=== PATIENT | female | born 1965 | race Two or more races ===

== ENCOUNTER 2019-08-08 14:54 | Emergency (ER) | payer SELFPAY ==
[~2019-08-08] VITALS: Ht 167.6 cm; Wt 68.0 kg
--- NOTE | 2019-08-08 15:51 | PHYS DOC ---
Past Medical History Past Medical History: Depression, Diabetes-Type I, Diabetes-Type II, Hypo thyroid Additional Past Surgical Histo: RIGHT HAND/WRIST Alcohol Use: None Drug Use: None Adult General Chief Complaint Chief Complaint: LOWER EXT PAIN HPI HPI Patient is a 54 year old female with history of diabetes type II, depression, hypothyroidism, who presents to the ED today complaining of numbness to the right toes that began yesterday after she worked out. Patient denies any trauma. She states intermittently she feels like her whole foot to the knee gets numbness. Patient states symptoms come and go. Denies anything specifically exacerbating or relieving the symptoms. She states she's had similar symptoms before but not lasting as long as today. See PERC score Patient is Romanian-speaking and interpretation is provided by family Review of Systems Review of Systems Constitutional: Denies fever or chills [] Eyes: Denies change in visual acuity, redness, or eye pain [] HENT: Denies nasal congestion or sore throat [] Respiratory: Denies cough or shortness of breath [] Cardiovascular: No additional information not addressed in HPI [] GI: Denies abdominal pain, nausea, vomiting, bloody stools or diarrhea [] : Denies dysuria or hematuria [] Musculoskeletal: Reports right foot numbness. Denies back pain or joint pain [] Integument: Denies rash or skin lesions [] Neurologic: Denies headache, focal weakness or sensory changes [] All other systems were reviewed and found to be within normal limits, except as documented in this note. Physical Exam Physical Exam Constitutional: Well developed, well nourished, no acute distress, non-toxic appearance. [] HENT: Normocephalic, atraumatic, bilateral external ears normal, oropharynx moist, no oral exudates, nose normal. [] Eyes: PERRLA, EOMI, conjunctiva normal, no discharge. [] Neck: Normal range of motion, no tenderness, supple, no stridor. [] Cardiovascular:Heart rate regular rhythm, no murmur [] Lungs & Thorax: Bilateral breath sounds clear to auscultation [] Abdomen: Bowel sounds normal, soft, no tenderness, no masses, no pulsatile masses. [] Skin: Warm, dry, no erythema, no rash. [] Back: No tenderness, no CVA tenderness. [] Extremities: No tenderness, no cyanosis, no clubbing, ROM intact, no edema. Negative Homans sign to the right lower extremity Neurologic: Alert and oriented X 3, normal motor function, normal sensory function, no focal deficits noted. [] Psychologic: Affect normal, judgement normal, mood normal. [] Current Patient Data Vital Signs Vital Signs Date Time Temp Pulse Resp B/P (MAP) Pulse Ox O2 Delivery O2 Flow Rate FiO2 08/08/19 15:10 98.1 75 19 132/71 (91) 96 Room Air 98.1 EKG EKG [] Radiology/Procedures Radiology/Procedures []PROCEDURE: VENOUS LOWER EXTREMITY RIGHT Right lower extremity venous doppler ultrasound History: Right lower extremity numbness Comparison: None Findings: Multiple grayscale, color, and duplex spectral analysis sonographic images were acquired of the right lower extremity veins to evaluate for the presence of DVT. There is normal phasicity. Normal compression, color-flow, and augmentation is demonstrated from the right common femoral to the popliteal veins. There is normal color flow of the proximal greater saphenous and profunda femoris veins. There is normal color flow of segments of the calf veins. Impression: 1. There is no evidence of deep venous thrombosis from the right common femoral to the popliteal veins. Electronically signed by: Alysia Arevalo MD (08/08/2019 4:19 PM) [id number] DICTATED and SIGNED BY: ALYSIA AREVALO MD DATE: 08/08/19 1619 PROCEDURE: ARTERIAL STUDY LOWER EXT RIGHT Bilateral lower extremity arterial ultrasound History: Right lower extremity paresthesias Findings: Multiple grayscale, color, and duplex spectral analysis sonographic images were acquired of the lower extremity arteries bilaterally. There are no previous similar exams. Velocities in cm/sec: RIGHT Common femoral artery 154 Profunda femoris artery 77 Proximal SFA 117 Mid SFA 114 Distal SFA 112 Popliteal artery 82 Anterior tibial artery 82 Dorsalis pedis artery 67 Posterior tibial artery 78 Peroneal artery 37 Triphasic flow is identified except in the deep femoral artery and peroneal artery distributions. Mild atheromatous involvement of the dorsalis pedis artery is present. Impression: No hemodynamically significant stenosis identified. Electronically signed by: Russel Mojica MD (08/08/2019 4:32 PM) [facility] DICTATED and SIGNED BY: RUSSEL MOJICA MD DATE: 08/08/19 7764 Course & Med Decision Making Course & Med Decision Making Pertinent Labs and Imaging studies reviewed. (See chart for details) This is a 54-year-old female patient presenting to the ED today complaining of numbness to the right foot and toes that began yesterday. PERC score is 1. Venous Doppler and arterial Dopplers of right lower extremity negative. I believe her diabetes could be causing her neuropathy to her feet. Patient was discharged with gabapentin. F/u with PCP next week. Dragon Disclaimer Dragon Disclaimer This electronic medical record was generated, in whole or in part, using a voice recognition dictation system. PERC Rule for PE PERC Rule for PE Response (Comments) Value Age > 50: Yes 1 HR > 100: No 0 Sa02 on room air <95%: No 0 Unilateral leg swelling: No 0 Hemoptysis: No 0 Recent surgery or trauma: No 0 Prior PE or DVT: No 0 Hormone use: No 0 Total 1 Departure Departure Impression: Primary Impression: Diabetes mellitus with neuropathy Disposition: HOME, SELF-CARE Condition: STABLE (you have any) Referrals: NO PCP (PCP) follow up with your doctor in one week Patient Instructions: Diabetic Neuropathy Additional Instructions: You were evaluated in the emergency room for numbness to your foot, we did an ultrasound of the right leg which was negative for blood clots or circulation issues. You could have diabetes neuropathy which could be the cause of your pain and numbness to your feet and arms. We sent you home with prescription for gabapentin. Follow-up with your doctor in 1-2 weeks. Scripts Gabapentin (GABAPENTIN ) 300 Mg Capsule 300 MG PO TID for NEUROGENIC PAIN, #30 CAP Prov: DENZEL MCKEON APRN 08/08/19 Problem Qualifiers Primary Impression: Diabetes mellitus with neuropathy Diabetes mellitus type: type 2 Diabetes mellitus senior living insulin use: unspecified senior living insulin use status Qualified Codes: E11.40 - Type 2 diabetes mellitus with diabetic neuropathy, unspecified DENZEL MCKEON APRN Aug 08, 2019 15:51
--- NOTE | 2019-08-08 16:22 | RAD ---
Right lower extremity venous doppler ultrasound History: Right lower extremity numbness Comparison: None Findings: Multiple grayscale, color, and duplex spectral analysis sonographic images were acquired of the right lower extremity veins to evaluate for the presence of DVT. There is normal phasicity. Normal compression, color-flow, and augmentation is demonstrated from the right common femoral to the popliteal veins. There is normal color flow of the proximal greater saphenous and profunda femoris veins. There is normal color flow of segments of the calf veins. Impression: 1. There is no evidence of deep venous thrombosis from the right common femoral to the popliteal veins. Electronically signed by: Jose Latham MD (08/08/2019 4:19 PM) [id number]
--- NOTE | 2019-08-08 16:35 | RAD ---
Bilateral lower extremity arterial ultrasound History: Right lower extremity paresthesias Findings: Multiple grayscale, color, and duplex spectral analysis sonographic images were acquired of the lower extremity arteries bilaterally. There are no previous similar exams. Velocities in cm/sec: RIGHT Common femoral artery 154 Profunda femoris artery 77 Proximal SFA 117 Mid SFA 114 Distal SFA 112 Popliteal artery 82 Anterior tibial artery 82 Dorsalis pedis artery 67 Posterior tibial artery 78 Peroneal artery 37 Triphasic flow is identified except in the deep femoral artery and peroneal artery distributions. Mild atheromatous involvement of the dorsalis pedis artery is present. Impression: No hemodynamically significant stenosis identified. Electronically signed by: Russel Ibrahim MD (08/08/2019 4:32 PM) [facility]
[2019-08-08 16:40] VITALS: BP 180/74
[2019-08-08] MEDS ORDERED: GABA300C18 PO (16:55)
== END 2019-08-08 16:55 | disposition home or self-care (01) ==
LOC: ER 14:54
DX: E11.40 Type 2 diabetes mellitus with diabetic neuropathy, unspecified (principal); E03.9 Hypothyroidism, unspecified; F32.9 Major depressive disorder, single episode, unspecified
CPT/HCPCS: 93923; 93971; 99284-25

== ENCOUNTER → 2020-05-28 | Outpatient (CLI) | payer OTHER ==
[~2020-05-28] MED LIST: GABA300C18 PO
--- NOTE | 2020-05-28 13:21 | RAD ---
WRIST 2V LEFT DATE: 05/28/2020 9:14 AM INDICATION: Reason: RIGHT WRIST PAIN. / Spl. Instructions: / History: COMPARISON: None. FINDINGS: Bones: There is no evidence of acute fracture or dislocation. Joints: Mild degenerative changes of the first CMC joint. Miscellaneous: None. IMPRESSION: No acute osseous abnormality. Mild first CMC joint degenerative changes. Electronically signed by: Jose Higgins MD (05/28/2020 1:18 PM) [id number]
--- NOTE | 2020-05-28 13:22 | RAD ---
KNEE RIGHT 2V DATE: 05/28/2020 9:14 AM INDICATION: Reason: RIGHT KNEE AND WRIST PAIN. / Spl. Instructions: / History: COMPARISON: None. FINDINGS: Bones: There is no evidence of acute fracture or dislocation. Joints: Moderate medial compartment joint space narrowing, mild lateral patellofemoral compartment joint space narrowing. Trace joint effusion. Miscellaneous: None. IMPRESSION: No acute osseous abnormality. Tricompartmental degenerative changes, worst and moderate in the medial compartment. Electronically signed by: Jose Higgins MD (05/28/2020 1:19 PM) [id number]
== END | disposition home or self-care (01) ==
LOC: RAD 09:48
PROVIDERS: ATTEND Nurse Practitioner
DX: M18.11 Unilateral primary osteoarthritis of first carpometacarpal joint, right hand (principal); M25.861 Other specified joint disorders, right knee; M25.561 Pain in right knee
CPT/HCPCS: 73100; 73560

== ENCOUNTER → 2020-12-29 | Outpatient (CLI) | payer OTHER ==
--- NOTE | 2020-12-29 17:13 | RAD ---
XR KNEE 3 VIEWS_RT DATE: 12/29/2020 1:13 PM INDICATION: Reason: CHRONIC RIGHT KNEE PAIN SINCE 2014. / Spl. Instructions: / History: COMPARISON: 05/28/2020 FINDINGS: Bones: There is no evidence of acute fracture or dislocation. Joints: Moderate medial compartment degenerative changes, mild lateral and patellofemoral compartmen t degenerative changes. There is no joint effusion. Miscellaneous: None. IMPRESSION: Tricompartmental degenerative changes have not progressed from the prior exam, most pronounced in the medial compartment with moderate joint space narrowing. Electronically signed by: Jose Higgins MD (12/29/2020 5:10 PM) [id number]
== END ==
LOC: RAD 12:53
PROVIDERS: ATTEND Family Medicine
DX: M17.11 Unilateral primary osteoarthritis, right knee (principal)
CPT/HCPCS: 73562

== ENCOUNTER 2021-08-20 13:09 | Emergency (ER) | payer OTHER ==
[~2021-08-20] VITALS: Ht 170.2 cm; Wt 61.0 kg
[2021-08-20 15:20] VITALS: BP 129/43
--- NOTE | 2021-08-20 16:17 | PHYS DOC ---
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 Patient states on Monday of this week she was at [employer] and a pallet fell on her great toe while in her shoe, she states that starting yesterday or the day before she noticed some drainage from underneath the nail. Patient does have a history of diabetes and neuropathy of her feet does have limited sensation of her toes due to her diabetic neuropathy. Patient does not follow a bar assistant at this time. Patient denies fever, chills, or chest pain (BASIM MANUEL APRN) Review of Systems: Review of Systems: Constitutional: Denies fever or chills. [] Eyes: Denies change in visual acuity. [] HENT: Denies nasal congestion or sore throat. [] Respiratory: Denies cough or shortness of breath. [] Cardiovascular: Denies chest pain or edema. [] GI: Denies abdominal pain, nausea, vomiting, bloody stools or diarrhea. [] : Denies dysuria. [] Musculoskeletal: Right great toe pain Integument: Denies rash. [] Neurologic: Denies headache, focal weakness or sensory changes. [] Endocrine: Denies polyuria or polydipsia. [] Lymphatic: Denies swollen glands. [] Psychiatric: Denies depression or anxiety. [] (BASIM MANUEL [employer]TY [employer]KER) Heart Score: C/O Chest Pain: N/A Risk Factors: Risk Factors: DM, Current or recent (<one month) smoker, HTN, HLP, family history of CAD, obesity. Risk Scores: Score 0 - 3: 2.5% MACE over next 6 weeks - Discharge Home Score 4 - 6: 20.3% MACE over next 6 weeks - Admit for Clinical Observation Score 7 - 10: 72.7% MACE over next 6 weeks - Early Invasive Strategies (BASIM MANUEL APRN) Current Medications: Current Medications Medications (Trade) Dose Ordered Sig/Ravindra Start Time Stop Time Status Last Admin Dose Admin Diphtheria/ Tetanus/Acell Pertussis (ADACEL TDap SYRINGE) 0.5 ml ONCE ONCE 08/20/21 16:15 08/20/21 16:16 UNV (BASIM MANUEL APRN) Allergies: Allergies: Allergies Coded Allergies Type Severity Reaction Last Updated Verified No Known Drug Allergies 08/20/21 No (BASIM MANUEL APRN) Physical Exam: PE: Constitutional: Well developed, well nourished, no acute distress, non-toxic appearance. [] HENT: Normocephalic, atraumatic, bilateral external ears normal, oropharynx moist, no oral exudates, nose normal. [] Eyes: PERRLA, EOMI, conjunctiva normal, no discharge. [] Neck: Normal range of motion, no tenderness, supple, no stridor. [] Cardiovascular:Heart rate regular rhythm, no murmur [] Lungs & Thorax: Bilateral breath sounds clear to auscultation [] Abdomen: Bowel sounds normal, soft, no tenderness, no masses, no pulsatile masses. [] Skin: Warm, dry, no erythema, no rash. [] Back: No tenderness, no CVA tenderness. [] Extremities: Right great toe swollen, drainage noted coming from underneath the nail, mild redness noted pain with palpation, no redness noted in the foot at all other toes are free of lacerations, abrasions, contusions, or ecchymosis no open wounds noted on the right foot as well. Dorsalis pedis pulse intact, cap refill in the right great toe is less than 2 seconds. Neurologic: Alert and oriented X 3, normal motor function, normal sensory f unction, no focal deficits noted. [] Psychologic: Affect normal, judgement normal, mood normal. [] (BASIM MANUEL APRN) Current Patient Data: Vital Signs: Vital Signs Date Time Temp Pulse Resp B/P (MAP) Pulse Ox O2 Delivery O2 Flow Rate FiO2 08/20/21 15:20 98.0 69 16 129/43 (71) 96 Room Air 98.0 (BASIM MANUEL APRN) EKG: EKG: [] (BASIM MAN[employer]EL [employer]ER) Radiology/Procedures: Radiology/Procedures: REASON: right great toe pain and drainage PROCEDURE: TOES RIGHT EXAM: 3 views right toes DATE: 08/20/2021 4:27 PM INDICATION: Reason: right great toe pain and drainage / Spl. Instructions: / History: . COMPARISON: No Prior FINDINGS: Soft tissue swelling about the right great toe without evidence for acute fracture or dislocation. Chronic appearing erosive change of the tuft of the distal phalanx. No evidence of acute fracture or dislocation. IMPRESSION: 1. No evidence of acute fracture or dislocation. 2. Chronic appearing erosive change about the tuft of the distal phalanx right great toe possibly from prior trauma. Electronically signed by: Marv Kruse MD (08/20/2021 4:53 PM) [facility] [] (BASIM MANUEL APRN) Course & Med Decision Making: Course & Med Decision Making Pertinent Labs and Imaging studies reviewed. (See chart for details) 1700 spoke to patient and daughter regarding the results will place patient on antibiotics orally, will have patient in a postop shoe, will have her see the bar assistant Dr. Alan for further management of this toe injury. Patient is encouraged to return to the emergency department for increased pain, increased swelling, increased drainage, and development of a fever. Will be given a work excuse until 24 August (BASIM MANUEL APRN) Dragon Disclaimer: Dragon Disclaimer: This electronic medical record was generated, in whole or in part, using a voice recognition dictation system. (BASIM MANUEL [employer]TY [employer]KER) Departure Departure Impression: Primary Impression: Toe injury Qualified Codes: S99.921A - Unspecified injury of right foot, initial encou nter Disposition: HOME / SELF CARE / HOMELESS Condition: STABLE Referrals: MELBA WASHINGTON MD (PCP) Patient Instructions: Crush Injury, Fingers or Toes Additional Instructions: Take antibiotics until gone Ice to the affected toe 20 minutes on 3-4 times daily over the next 2 to 3 days Use postop shoe as needed for comfort Follow-up with Dr. Alan the bar assistant on Monday by phone and get the soonest appointment for further management of this Return to the emergency department for increased pain, swelling, drainage, or development of fever Scripts Cephalexin (CEPHALEXIN) 500 Mg Tablet 1 CAP PO BID for 10 Days, #20 TAB Prov: BASIM MANUEL APRN 08/20/21 Attending Signature Attending Signature I have reviewed the PA/PASTE UP ARTIST APPRENTICE's note and plan of care. I was available for consultation as needed during the patient's visit in the emergency department. I agree with the clinical impression, plan, and disposition. (JERRICA ROWLEY DO) BASIM MANUEL APRN Aug 20, 2021 16:17 JERRICA ROWLEY DO Aug 21, 2021 06:30
[2021-08-20] MEDS ORDERED: DIPH,PERTUSS(ACELL),TET VAC/PF 0.5 ML SYRINGE. VAX IM ONE (16:30)
--- NOTE | 2021-08-20 16:56 | RAD ---
EXAM: 3 views right toes DATE: 08/20/2021 4:27 PM INDICATION: Reason: right great toe pain and drainage / Spl. Instructions: / History: . COMPARISON: No Prior FINDINGS: Soft tissue swelling about the right great toe without evidence for acute fracture or dislocation. Ch ronic appearing erosive change of the tuft of the distal phalanx. No evidence of acute fracture or di slocation. IMPRESSION: 1. No evidence of acute fracture or dislocation. 2. Chronic appearing erosive change about the tuft of the distal phalanx right great toe possibly fr om prior trauma. Electronically signed by: Marv Kruse MD (08/20/2021 4:53 PM) [id number]
[2021-08-20] MEDS ORDERED: CEPH500T PO (17:10)
== END 2021-08-20 17:35 | disposition home or self-care (01) ==
LOC: ER 13:09
DX: S99.921A Unspecified injury of right foot, initial encounter (principal); E11.40 Type 2 diabetes mellitus with diabetic neuropathy, unspecified; E03.9 Hypothyroidism, unspecified; W18.39XA Other fall on same level, initial encounter; Y93.89 Activity, other specified; Y92.89 Other specified places as the place of occurrence of the external cause; Y99.8 Other external cause status
CPT/HCPCS: 73660; 90471; 90715; 99283